=== PATIENT | male | born 1995 | race Hispanic/Latino ===

== ENCOUNTER 2020-03-03 14:15 | Emergency (ER) | payer MEDICARE ==
--- NOTE | 2020-03-03 14:36 | Event Note ---
ED Screening Note Date of service: 03/03/20 Time: 14:36 ED Screening Note: Patient presents from care facility for self injuries today This initial assessment/diagnostic orders/clinical plan/treatment(s) is/are subject to change based on patients health status, clinical progression and re-assessment by fellow clinical providers in the ED. Further treatment and workup at subsequent clinical providers discretion. Patient/guardian urged not to elope from the ED as their condition may be serious if not clinically assessed and managed. Initial orders include: mental health eval
[2020-03-03 15:23] LABS: Basophils % (Auto) 0.3 % (0.0-1.8); Hematocrit 39.8 % (35.5-45.6); Hemoglobin 14.1 gm/dl (11.8-15.2); Lymphocytes # (Auto) 0.9 K/mm3 (1.2-5.4); Lymphocytes % (Auto) 12.9 % (13.4-35.0); Mean Corpuscular HGB Conc 36 % (32-34); Mean Corpuscular Volume 90 fl (84-94); Monocytes # (Auto) 0.9 K/mm3 (0.0-0.8); Monocytes % (Auto) 11.6 % (0.0-7.3); Platelet Count 225 K/mm3 (140-440); Red Blood Count 4.42 M/mm3 (3.65-5.03)
[2020-03-03 15:26] LABS: Alanine Aminotransferase 25 units/L (7-56); Albumin 3.8 g/dL (3.9-5); BUN/Creatinine Ratio 10; Blood Urea Nitrogen 8 mg/dL (9-20); Calcium 9.4 mg/dL (8.4-10.2); Hemolysis Index 12
[2020-03-03] MEDS ORDERED: BACITRACIN ZINC OINT 28.4 GM TP ONE (17:39)
[2020-03-03] MEDS ORDERED: SODIUM CHLORIDE 0.9% 1000 ML 1,000 ML IV ONE (17:39)
--- NOTE | 2020-03-03 18:20 | Emergency Department Report ---
HPI - General Chief Complaint: Psych Time Seen by Provider: 03/03/20 16:58 - HPI HPI: Room 17 The patient is a 24-year-old male present with a chief complaint of scratches to bilateral upper extremities. The patient has a history of bipolar disorder and schizoaffective disorder and reportedly has self-injurious behavior which includes smacking himself in the face and scratching his arms. V Belt Builder states over the past 2 days the patient has been scratching at his triceps. Patient made no statements of wanting to kill himself. Staff state they brought the patient to the ED simply for treatment of the scratches to his arms. ED Past Medical Hx - Past Medical History Previous Medical History?: No Hx Diabetes: Yes Hx Psychiatric Treatment: Yes (Schizoaffective disorder, bipolar disorder) - Surgical History Past Surgical History?: No - Family History Family history: no significant - Social History Smoking Status: Never Smoker Substance Use Type: None ED Review of Systems ROS: Stated complaint: MENTAL HEALTH Other details as noted in HPI Comment: Unobtainable due to pts medical conditions (Developmentally delayed) Constitutional: no symptoms reported Respiratory: no symptoms reported Endocrine: no symptoms reported Physical Exam - Physical Exam Vital Signs: Vital Signs 03/03/20 03/03/20 14:18 14:31 Temperature 99 F 99.0 F Pulse Rate 125 H 129 H Respiratory 18 20 Rate Blood Pressure 161/100 161/100 [Right] O2 Sat by Pulse 95 Oximetry Vital Signs 03/03/20 03/03/20 03/03/20 14:18 14:31 18:16 Temperature 99 F 99.0 F Pulse Rate 125 H 129 H 117 H Respiratory 18 20 22 Rate Blood Pressure 155/96 Blood Pressure 161/100 161/100 [Right] O2 Sat by Pulse 95 98 Oximetry 03/03/20 03/03/20 19:00 19:16 Temperature Pulse Rate 115 H 104 H Respiratory 19 14 Rate Blood Pressure 155/96 155/96 Blood Pressure [Right] O2 Sat by Pulse 99 99 Oximetry Physical Exam: GENERAL: The patient is well-nourished male sitting on stretcher not appearing to be in acute distress HEENT: Normocephalic. Atraumatic. Extraocular motions are intact. Patient has moist mucous membranes. NECK: Supple. Trachea midline CHEST/LUNGS: Clear to auscultation. There is no respiratory distress noted. HEART/CARDIOVASCULAR: Regular. There is tachycardia. There is no gallop rub or murmur. ABDOMEN: Abdomen is soft, nontender. Patient has normal bowel sounds. There is no abdominal distention. SKIN: There are abrasions to bilateral tricep regions. There is no bleeding visualized. There is no edema. There is no diaphoresis. NEURO: The patient is awake and alert. The patient is cooperative. The patient has no focal neurologic deficits. MUSCULOSKELETAL: There is no evidence of acute injury. ED Course Vital Signs 03/03/20 03/03/20 14:18 14:31 Temperature 99 F 99.0 F Pulse Rate 125 H 129 H Respiratory 18 20 Rate Blood Pressure 161/100 161/100 [Right] O2 Sat by Pulse 95 Oximetry ED Medical Decision Making - Lab Data Result diagrams: 03/03/20 14:48 03/03/20 14:48 Laboratory Tests 03/03/20 03/03/20 03/03/20 14:48 14:48 14:48 WBC 7.3 RBC 4.42 Hgb 14.1 Hct 39.8 MCV 90 MCH 32 MCHC 36 H RDW 14.0 Plt Count 225 Lymph % (Auto) 12.9 L [place] % (Auto) 11.6 H Eos % (Auto) 0.0 Baso % (Auto) 0.3 Lymph # (Auto) 0.9 L [place] # (Auto) 0.9 H Eos # (Auto) 0.0 Baso # (Auto) 0.0 Seg Neutrophils % 75.2 H Seg Neutrophils # 5.5 Sodium 137 Potassium 4.0 Chloride 99.8 Carbon Dioxide 23 Anion Gap 18 BUN 8 L Creatinine 0.8 Estimated GFR > 60 BUN/Creatinine Ratio 10 Glucose 110 H Calcium 9.4 Total Bilirubin 0.30 AST 30 ALT 25 Alkaline Phosphatase 85 Total Protein 7.8 Albumin 3.8 L Albumin/Globulin Ratio 1.0 Salicylates < 0.3 L Acetaminophen Plasma/Serum Alcohol 03/03/20 03/03/20 14:48 14:48 WBC RBC Hgb Hct MCV MCH MCHC RDW Plt Count Lymph % (Auto) [place] % (Auto) Eos % (Auto) Baso % (Auto) Lymph # (Auto) [place] # (Auto) Eos # (Auto) Baso # (Auto) Seg Neutrophils % Seg Neutrophils # Sodium Potassium Chloride Carbon Dioxide Anion Gap BUN Creatinine Estimated GFR BUN/Creatinine Ratio Glucose Calcium Total Bilirubin AST ALT Alkaline Phosphatase Total Protein Albumin Albumin/Globulin Ratio Salicylates Acetaminophen 5.0 L Plasma/Serum Alcohol < 0.01 - Differential Diagnosis Abrasions Critical care attestation.: If time is entered above; I have spent that time in minutes in the direct care of this critically ill patient, excluding procedure time. ED Disposition Clinical Impression: Abrasion of right upper extremity, Abrasion of left upper extremity Disposition: DC/TX-70 ANOTHER TYPE HLTHCARE Is pt being admited?: No Does the pt Need Aspirin: No Condition: Stable Time of Disposition: 19:31 (DC with lab animal technician to long-term)
[2020-03-03 18:32] VITALS: BP 155/96
== END 2020-03-03 19:53 | disposition other institution (70) ==
LOC: ED 14:15
DX: S40.811A Abrasion of right upper arm, initial encounter (principal); S40.812A Abrasion of left upper arm, initial encounter; E11.9 Type 2 diabetes mellitus without complications; F25.0 Schizoaffective disorder, bipolar type; Z88.0 Allergy status to penicillin; Z91.013 Allergy to seafood; X83.8XXA Intentional self-harm by other specified means, initial encounter; Y93.89 Activity, other specified; Y92.89 Other specified places as the place of occurrence of the external cause; Y99.8 Other external cause status
CPT/HCPCS: 36415; 80053; 85025; 96360; 99284; J7030; 80320; G0480

== ENCOUNTER 2020-06-05 07:40 | Day surgery (SDC) | payer MEDICARE ==
[2020-06-05] MEDS ORDERED: BACTERIOSTATIC SODIUM CHLORIDE 0.9% 30 ML VIAL INFILTRATI ONE (07:51)
[2020-06-05] MEDS ORDERED: fentaNYL 100 MCG/2 ML INJ ONE (08:03)
[2020-06-05] MEDS ORDERED: LIDOCAINE MPF (2%) 20 MG/1 ML VIAL 5 ML ONE (08:03)
[2020-06-05] MEDS ORDERED: propofoL 200 MG/20 ML VIAL IV ONE (08:04)
[2020-06-05] MEDS ORDERED: dexAMETHasone 20 MG/5 ML VIAL ONE (08:05)
[2020-06-05] MEDS ORDERED: SUCCINYLCHOLINE CHLORIDE 200 MG/10 ML INJ MDV ONE (08:05)
[2020-06-05] MEDS ORDERED: PHENYLEPHRINE/NS 1,000 MCG/10 ML SYRINGE (OR USE) IV ONE (08:05)
[2020-06-05] MEDS ORDERED: ONDANSETRON 4 MG/2 ML INJ ONE (08:05)
[2020-06-05] MEDS ORDERED: GLYCOPYRROLATE 0.4 MG/2 ML INJ ONE (08:05)
[2020-06-05] MEDS ORDERED: GENTAMICIN 80 MG in SODIUM CHLORIDE 0.9% 100 ML IV SCH (08:30)
[2020-06-05] MEDS ORDERED: LACTATED RINGERS 1,000 ML ONE (08:54)
[2020-06-05] MEDS ORDERED: HYDROmorphone 1 MG/1 ML INJ IV PRN ×2 (08:59)
[2020-06-05] MEDS ORDERED: ONDANSETRON 4 MG/2 ML INJ IV PRN (08:59)
[2020-06-05] MEDS ORDERED: MIDAZOLAM 2 MG/2 ML INJ IV NR (09:00)
[2020-06-05] MEDS ORDERED: GENTAMICIN/NS 80 MG/100 ML 100 ML IV SCH (09:00)
[2020-06-05] MEDS ORDERED: LACTATED RINGERS 1,000 ML IV SCH (09:00)
--- NOTE | 2020-06-05 09:00 | Anesthesia Day of Surgery ---
Anesthesia Day of Surgery - Day of Surgery Patient Examined: Yes Patient H&P Reviewed: Yes Patient is NPO: Yes
--- NOTE | 2020-06-05 09:04 | Anesthesia Consultation ---
Anesthesia Consult and Med Hx Date of service: 06/05/20 - Airway Intubation Access Assessment: Probably Good (Unable to assess airway) - Pre-Operative Health Status ASA Pre-Surgery Classification: ASA3 Proposed Anesthetic Plan: General - Pulmonary Hx Smoking: No Hx Sleep Apnea: No (MARCELA PRE SCREEN HIGH RISK) - Central Nervous System Hx Seizures: (? CAREGIVER UNSURE) Hx Psychiatric Problems: Yes - Endocrine Hx Hypothyroidism: Yes - Other Systems Hx Cancer: No - Additional Comments Anesthesia Medical History Comments: Pt with severe autism and lives in a long term. Also has depression, bipolar, ADHD, Schizophrenia, self-injury.
[2020-06-05] MEDS ORDERED: WATER FOR IRRIG STERILE 1,500 ML BOTTLE IR ONE (10:00)
[2020-06-05] MEDS ORDERED: IOHEXOL 300 MG/ML 50ML IV ONE (10:00)
--- NOTE | 2020-06-05 10:29 | Operative Report ---
PREOPERATIVE DIAGNOSIS: Hematuria? cystitis. POSTOPERATIVE DIAGNOSIS: Hematuria? cystitis. PROCEDURE: Cystoscopy, retrograde, small biopsy, fulguration. SURGEON: Dr. Jin Hylton. ANESTHESIA: General. FINDINGS: This is a gentleman who is autistic. We could not evaluate in the office. He was combative. He now presents for cystoscopy. He had possible urinary tract infections, now presents for evaluation. DESCRIPTION OF PROCEDURE: The patient was brought to the operating room and placed on the operating table. Following induction of anesthesia, placed in lithotomy position, prepped and draped in usual sterile fashion. We used the 17 and 20-Turkmen sheaths to not to cause any trauma. The urethra showed no strictures. Bladder neck was open. On the right lateral wall, there was also an inflammatory area, which looked like it had recently bled. Pictures were taken. This was biopsied and cauterized. Retrograde showed delicate system. This might have been all related to cystitis. The exact etiology is unknown. The patient tolerated the procedure well. He was given gentamicin. He will be given an antibiotic. Postop brought to recovery room in stable condition. JOB# [id number] ALICIA/DEMIAN
--- NOTE | 2020-06-05 10:31 | Post Operative Note ---
Date of procedure: 06/05/20 Pre-op diagnosis: hematuria Post-op diagnosis: same Findings: small lesion Procedure: cysto biopsy fulg rpgs Anesthesia: GETA Surgeon: HENNA BOX Estimated blood loss: none Pathology: list (bladder) Specimen disposition: to lab Condition: stable Disposition: PACU
--- NOTE | 2020-06-05 10:32 | Discharge Summary ---
Short Stay Discharge Plan Activity: other (no straining ) Diet: regular Special Instructions: other (inc fluids ) Additional Instructions: INCREASE ORAL FLUIDS NO STRAINING CALL FOR FOLLOW-UP APPT Follow up with: CUCA ZIEGLER [Other] - 7 Days HENNA BOX MD [Staff Physician] - 7 Days Forms: Outpatient Surgery DC Inst.
--- NOTE | 2020-06-05 11:42 | Post Anesthesia Evaluation ---
- Post Anesthesia Evaluation Patient Participated: Yes Airway Patent: Yes Stable Respiratory Function: Yes Nausea/Vomiting: No Temp > 96.8F: Yes Pain Manageable: Yes Adequeate Hydration: Yes Anesthesia Complications: No Block Receding Appropriately: Not Applicable Patient on Ventilator: No
[2020-06-05 12:10] VITALS: BP 116/80
--- NOTE | 2020-06-05 14:00 | Fluoroscopy Report ---
FLUOROSCOPY RETROGRADE UROGRAPHY HISTORY: Gross hematuria FINDINGS: Fluoroscopy was provided by radiology during retrograde urography by the urologist. There i s normal filling of both renal collecting systems. No filling defect or abnormal dilatation is identi fied. IMPRESSION: Unremarkable bilateral retrograde pyelograms Fluoroscopy time: 21 seconds Fluoroscopic images: 6 Signer Name: Lencho Jesus Jr, MD Signed: 06/05/2020 1:56 PM Workstation Name: [id number]
== END 2020-06-05 07:41 | disposition home or self-care (01) ==
LOC: OR 07:40
PROVIDERS: ATTEND Urology
DX: N30.81 Other cystitis with hematuria (principal); I10 Essential (primary) hypertension; E03.9 Hypothyroidism, unspecified; F31.9 Bipolar disorder, unspecified; Z86.19 Personal history of other infectious and parasitic diseases; Z88.0 Allergy status to penicillin; Z91.013 Allergy to seafood; Z79.899 Other long term (current) drug therapy; Z98.890 Other specified postprocedural states
CPT/HCPCS: 52204; 74420; 82962; 88305; J0330; J1100; J1580; J2250; J2370; J2405; J2704; J3010; J7120; Q9967; U0003; 88112; C1758

== ENCOUNTER 2021-01-10 18:50 | Emergency (ER) | payer MEDICARE ==
[2021-01-10] MEDS ORDERED: LORazepam 1 MG TAB PO ONE (20:47)
[2021-01-10 21:33] LABS: Basophils # (Auto) 0.1 K/mm3 (0.0-0.1); Basophils % (Auto) 0.7 % (0.0-1.8); Hematocrit 42.6 % (35.5-45.6); Hemoglobin 14.4 gm/dl (11.8-15.2); Lymphocytes # (Auto) 2.6 K/mm3 (1.2-5.4); Lymphocytes % (Auto) 26.7 % (13.4-35.0); Mean Corpuscular HGB Conc 34 % (32-34); Mean Corpuscular Volume 90 fl (84-94); Monocytes # (Auto) 0.8 K/mm3 (0.0-0.8); Monocytes % (Auto) 8.1 % (0.0-7.3); Platelet Count 240 K/mm3 (140-440); Red Blood Count 4.74 M/mm3 (3.65-5.03); Red Cell Distribution Width 17.3 % (13.2-15.2)
[2021-01-10 21:45] LABS: Alanine Aminotransferase 12 units/L (7-56); Albumin 4.1 g/dL (3.9-5); BUN/Creatinine Ratio 13; Blood Urea Nitrogen 10 mg/dL (9-20); Calcium 9.6 mg/dL (8.4-10.2); Hemolysis Index 3
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
[2021-01-11 04:53] VITALS: BP 132/88
== END 2021-01-11 05:14 | disposition home or self-care (01) ==
LOC: ED 18:50
DX: R45.1 Restlessness and agitation (principal); I10 Essential (primary) hypertension; E11.8 Type 2 diabetes mellitus with unspecified complications; F31.9 Bipolar disorder, unspecified; F20.9 Schizophrenia, unspecified; Z88.0 Allergy status to penicillin; Z91.013 Allergy to seafood
CPT/HCPCS: 36415; 80053; 80320; 85025; 99283; 99284; G0480

== ENCOUNTER 2021-06-23 23:45 | Emergency (ER) | payer MEDICARE ==
--- NOTE | 2021-06-24 00:09 | Emergency Department Report ---
ED Psych HPI - General Stated Complaint: MH EVAL Time Seen by Provider: 06/23/21 23:50 Source: EMS - History of Present Illness Initial Comments: Patient is 26 years old male with history of autism. Patient brought to the emergency room via EMS from a jail. long-term staff stated that patient became very aggressive this evening starting banging his head on a wall and he made like several holes in the wall. He also tried to rip off his penis according to the EMS report. Patient is alert and agitated. Patient with several bruises to the both right and left shoulder. Multiple abrasion to the head. Patient brought into a two-point restraint and 1013. Patient is asking for food. MD Complaint: altered mental status - Related Data Home Medications Medication Instructions Recorded Confirmed Last Taken Chlorpromazine HCl [chlorproMAZINE] 100 mg PO TID 05/23/20 06/05/20 06/05/20 07:[address] [DepaKOTE DR] 500 mg PO BID 05/23/20 06/05/20 06/05/20 07:00 Guanfacine HCl [Guanfacine HCl ER] 1 mg PO QHS 05/23/20 06/05/20 06/04/20 20:00 HYDROcodone/ACETAMINOPHEN [Lortab 1 dose PO PRN PRN 05/23/20 05/23/20 Unknown 10 mg-300 mg per 15 ML ORAL LIQ] Ketoconazole 2% [Nizoral] 1 applicatio TP QDAY 05/23/20 06/05/20 06/04/20 08:00 LORazepam [Lorazepam Intensol] 0.5 ml PO TID 05/23/20 06/05/20 06/05/20 07:00 Levothyroxine [Synthroid] 50 mcg PO QAM 05/23/20 06/05/20 06/05/20 07:00 Loratadine [Claritin] 10 mg PO DAILY 05/23/20 06/05/20 06/05/20 07:00 OLANzapine [ZyPREXA] 5 mg PO QDAY 05/23/20 06/05/20 06/05/20 07:00 Sertraline HCl [Zoloft] 20 mg PO DAILY 05/23/20 06/05/20 06/05/20 07:00 cloNIDine [Catapres] 0.1 mg PO BID 05/23/20 06/05/20 06/05/20 07:00 clonazePAM [ Klonopin] 0.5 mg PO TID 05/23/20 06/05/20 06/05/20 07:00 traZODone [Desyrel] 50 mg PO TID 05/23/20 06/05/20 06/05/20 07:00 Allergies Allergy/AdvReac Type Severity Reaction Status Date / Time Penicillins Allergy Unknown Verified 06/24/21 09:01 shellfish derived Allergy Unknown Verified 06/24/21 09:01 ED Review of Systems ROS: Stated complaint: MH EVAL Other details as noted in HPI Comment: All other systems reviewed and negative Constitutional: denies: chills, fever Respiratory: denies: cough, shortness of breath, SOB with exertion Cardiovascular: denies: chest pain, palpitations Neurological: denies: headache Psychiatric: anxiety ED Past Medical Hx - Past Medical History Hx Hypertension: Yes Hx Diabetes: Yes (NO LONGER ON MEDS) Hx Seizures: (? CAREGIVER UNSURE) Hx Psychiatric Treatment: Yes (Schizoaffective disorder, bipolar disorder) Hx HIV: No - Social History Smoking Status: Unknown if ever smoked - Medications Home Medications: Home Medications Medication Instructions Recorded Confirmed Last Taken Type Chlorpromazine HCl [chlorproMAZINE] 100 mg PO TID 05/23/20 06/05/20 06/05/20 07:00 History Divalproex [Mathew QUINONEZ] 500 mg PO BID 05/23/20 06/05/20 06/05/20 07:00 History Guanfacine HCl [Guanfacine HCl ER] 1 mg PO QHS 05/23/20 06/05/20 06/04/20 20:00 History HYDROcodone/ACETAMINOPHEN [Lortab 1 dose PO PRN PRN 05/23/20 05/23/20 Unknown History 10 mg-300 mg per 15 ML ORAL LIQ] Ketoconazole 2% [Nizoral] 1 applicatio TP QDAY 05/23/20 06/05/20 06/04/20 08:00 History LORazepam [Lorazepam Intensol] 0.5 ml PO TID 05/23/20 06/05/20 06/05/20 07:00 History Levothyroxine [Synthroid] 50 mcg PO QAM 05/23/20 06/05/20 06/05/20 07:00 History Loratadine [Claritin] 10 mg PO DAILY 05/23/20 06/05/20 06/05/20 07:00 History OLANzapine [ZyPREXA] 5 mg PO QDAY 05/23/20 06/05/20 06/05/20 07:00 History Sertraline HCl [Zoloft] 20 mg PO DAILY 05/23/20 06/05/20 06/05/20 07:00 History cloNIDine [Catapres] 0.1 mg PO BID 05/23/20 06/05/20 06/05/20 07:00 History clonazePAM [ Klonopin] 0.5 mg PO TID 05/23/20 06/05/20 06/05/20 07:00 History traZODone [Desyrel] 50 mg PO TID 05/23/20 06/05/20 06/05/20 07:00 History ED Physical Exam - General General appearance: alert, anxious, other (agitated) - Head Head exam: Present: other (Multiple abrasion to the forehead.) - Eye Eye exam: Present: normal appearance - ENT ENT exam: Present: normal exam, normal orophraynx, mucous membranes moist - Neck Neck exam: Present: normal inspection, full ROM. Absent: tenderness, meningismus - Respiratory Respiratory exam: Present: normal lung sounds bilaterally - Cardiovascular Cardiovascular Exam: Present: regular rate, normal rhythm, normal heart sounds - GI/Abdominal GI/Abdominal exam: Present: soft, normal bowel sounds. Absent: distended, tenderness, guarding, rebound, rigid - Extremities Exam Extremities exam: Present: other (Abrasion to the right and left shoulder.) - Back Exam Back exam: Present: normal inspection, full ROM. Absent: CVA tenderness (R), CVA tenderness (L) - Neurological Exam Neurological exam: Present: alert, altered - Psychiatric Psychiatric exam: Present: agitated, anxious - Skin Skin exam: Present: abrasion, ecchymosis ED Course Vital Signs 06/24/21 06/24/21 06/24/21 00:17 08:21 09:00 Temperature 98 F Pulse Rate 103 H 105 H 76 Respiratory 18 14 Rate Blood Pressure 140/90 Blood Pressure 123/95 126/88 [Right] O2 Sat by Pulse 100 99 95 Oximetry 06/24/21 06/24/21 06/24/21 09:30 10:00 10:30 Temperature Pulse Rate 72 76 74 Respiratory 10 L Rate Blood Pressure 118/86 Blood Pressure 127/81 119/94 122/83 [Right] O2 Sat by Pulse 99 99 100 Oximetry 06/24/21 06/24/21 06/24/21 11:00 11:30 12:00 Temperature Pulse Rate 75 78 74 Respiratory 11 L 15 11 L Rate Blood Pressure 122/83 114/83 120/82 Blood Pressure 125/95 [Right] O2 Sat by Pulse 98 98 99 Oximetry 06/24/21 06/24/21 06/24/21 12:30 13:00 13:30 Temperature Pulse Rate 78 84 79 Respiratory 11 L 13 16 Rate Blood Pressure 133/89 129/88 132/88 Blood Pressure [Right] O2 Sat by Pulse 100 93 99 Oximetry 06/24/21 06/24/21 06/24/21 14:00 14:30 15:00 Temperature Pulse Rate 83 79 85 Respiratory 12 13 12 Rate Blood Pressure 111/72 121/80 113/76 Blood Pressure [Right] O2 Sat by Pulse 99 100 99 Oximetry 06/24/21 06/24/21 06/24/21 15:30 16:00 16:30 Temperature Pulse Rate 86 101 H 99 H Respiratory 14 11 L Rate Blood Pressure 111/71 113/69 113/69 Blood Pressure [Right] O2 Sat by Pulse 99 97 Oximetry 06/24/21 06/24/21 06/24/21 17:00 17:30 18:00 Temperature Pulse Rate 85 67 72 Respiratory 12 10 L 10 L Rate Blood Pressure 113/69 113/69 113/69 Blood Pressure [Right] O2 Sat by Pulse 99 Oximetry 06/24/21 06/24/21 06/24/21 18:30 18:36 19:00 Temperature Pulse Rate 59 L 64 89 Respiratory 10 L 10 L 13 Rate Blood Pressure 113/69 113/69 113/69 Blood Pressure [Right] O2 Sat by Pulse 100 100 100 Oximetry 06/24/21 06/25/21 06/25/21 23:00 03:00 06:59 Temperature 98 F Pulse Rate 60 60 Respiratory 16 16 Rate Blood Pressure 117/80 Blood Pressure 120/68 110/70 [Right] O2 Sat by Pulse 100 98 Oximetry 06/25/21 06/25/21 06/25/21 07:00 08:51 08:52 Temperature Pulse Rate 60 89 Respiratory 16 Rate Blood Pressure 117/80 Blood Pressure 117/80 [Right] O2 Sat by Pulse 98 99 100 Oximetry 06/25/21 06/25/21 06/25/21 09:00 09:01 09:31 Temperature Pulse Rate Respiratory Rate Blood Pressure 117/80 117/80 Blood Pressure [Right] O2 Sat by Pulse 100 99 98 Oximetry 06/25/21 06/25/21 06/25/21 10:01 10:31 11:34 Temperature Pulse Rate Respiratory Rate Blood Pressure 117/80 117/80 115/87 Blood Pressure [Right] O2 Sat by Pulse 99 100 Oximetry 06/25/21 06/25/21 06/25/21 12:11 13:15 13:57 Temperature Pulse Rate Respiratory Rate Blood Pressure 88/61 88/61 88/61 Blood Pressure [Right] O2 Sat by Pulse 87 Oximetry 06/25/21 06/25/21 06/25/21 14:01 14:31 15:00 Temperature Pulse Rate Respiratory Rate Blood Pressure 88/61 88/61 88/61 Blood Pressure [Right] O2 Sat by Pulse 100 96 99 Oximetry 06/25/21 06/25/21 06/25/21 16:17 16:19 19:53 Temperature Pulse Rate 76 113 H Respiratory 14 13 Rate Blood Pressure 88/61 112/62 Blood Pressure 121/80 [Right] O2 Sat by Pulse 99 100 Oximetry 06/25/21 06/25/21 06/25/21 20:01 20:31 21:01 Temperature Pulse Rate 108 H 101 H 98 H Respiratory 14 14 18 Rate Blood Pressure 105/56 99/51 99/61 Blood Pressure [Right] O2 Sat by Pulse 96 98 Oximetry 06/25/21 06/26/21 06/26/21 21:41 08:00 09:00 Temperature Pulse Rate 103 H Respiratory 16 16 Rate Blood Pressure 126/73 Blood Pressure 117/69 [Right] O2 Sat by Pulse 98 98 Oximetry 06/26/21 06/26/21 06/26/21 12:03 15:59 19:40 Temperature 98.4 F 97.6 F Pulse Rate 95 H 97 H 86 Respiratory 16 14 18 Rate Blood Pressure Blood Pressure 103/69 101/71 105/71 [Right] O2 Sat by Pulse 100 100 96 Oximetry 06/27/21 06/27/21 06/27/21 06:20 07:45 19:13 Temperature 98.7 F 97.5 F L Pulse Rate 86 86 99 H Respiratory 18 17 17 Rate Blood Pressure Blood Pressure 103/55 131/99 122/73 [Right] O2 Sat by Pulse 96 99 98 Oximetry 06/28/21 06/28/21 06/28/21 00:36 00:43 00:55 Temperature 98 F Pulse Rate 88 52 L 108 H Respiratory 20 16 20 Rate Blood Pressure Blood Pressure 133/89 135/90 127/88 [Right] O2 Sat by Pulse 97 97 98 Oximetry 06/28/21 06/28/21 06/28/21 01:31 01:46 04:32 Temperature Pulse Rate 91 H 89 88 Respiratory 19 17 18 Rate Blood Pressure Blood Pressure 130/88 130/91 128/83 [Right] O2 Sat by Pulse 100 100 99 Oximetry 06/28/21 06/28/21 04:52 05:52 Temperature Pulse Rate 89 79 Respiratory 19 19 Rate Blood Pressure Blood Pressure 127/88 129/74 [Right] O2 Sat by Pulse 99 99 Oximetry ED Medical Decision Making - Lab Data Result diagrams: 06/25/21 01:48 06/24/21 00:30 - Medical Decision Making Patient is 26 years old male with history of autism. Patient brought to the emergency room via EMS from a jail. long-term staff stated that patient became very aggressive this evening starting banging his head on a wall and he made like several holes in the wall. He also tried to rip off his penis according to the EMS report. Patient is alert and agitated. Patient with several bruises to the both right and left shoulder. Multiple abrasion to the head. Patient brought into a two-point restraint and 1013. Patient is asking for food. Patient became agitated. Patient received Geodon 20 mg IM and it did help a lot with agitation patient went to sleep. Labs reviewed and is unremarkable except for slight leukocytosis. UA and UDS is still pending. Patient is medically cleared to be evaluated by our psychiatric team. Critical care attestation.: If time is entered above; I have spent that time in minutes in the direct care of this critically ill patient, excluding procedure time. ED Disposition Clinical Impression: Aggressive behavior, Self-inflicted injury Disposition: [address] [place] [address] Is pt being admited?: No Condition: Stable Referrals: PRIMARY CARE, [Primary Care Provider] - 3-5 Days
[2021-06-24] MEDS ORDERED: ZIPRASIDONE MESYLATE 20 MG VIAL IM ONE (00:23)
[2021-06-24 00:57] LABS: Basophils % (Auto) 0.4 % (0.0-1.8); Eosinophils % (Auto) 0.2 % (0.0-4.3); Hematocrit 36.1 % (35.5-45.6); Hemoglobin 12.1 gm/dl (11.8-15.2); Lymphocytes # (Auto) 1.6 K/mm3 (1.2-5.4); Lymphocytes % (Auto) 13.5 % (13.4-35.0); Mean Corpuscular HGB Conc 34 % (32-34); Mean Corpuscular Volume 91 fl (84-94); Monocytes # (Auto) 0.9 K/mm3 (0.0-0.8); Monocytes % (Auto) 8.1 % (0.0-7.3); Platelet Count 257 K/mm3 (140-440); Red Blood Count 3.96 M/mm3 (3.65-5.03); Red Cell Distribution Width 14.1 % (13.2-15.2)
[2021-06-24 01:02] LABS: Blood Urea Nitrogen 16 mg/dL (9-20); Calcium 8.7 mg/dL (8.4-10.2); Hemolysis Index 11
[2021-06-24 01:09] LABS: BUN/Creatinine Ratio 27
[2021-06-24] MEDS ORDERED: KETAMINE 500 MG/5 ML VIAL MDV IM ONE ×2 (07:56→16:06)
--- NOTE | 2021-06-24 07:58 | Emergency Department Report ---
Marta Doc - Documentation Documentation: [id number] was asked to intervene as the patient was agitated, hitting himself, sc ratching at his skin, pulling at his penis. He has a strap around his abdomen with both arms restrained but still has movement at the elbows and shoulders. He is physically abusing himself and scratching at his skin. He is pulling at his genitalia. Patient had been given Geodon previously with no symptomatic change per nursing report. Ketamine IM was ordered in order to provide adequate sedation and provide appropriate care for this patient. It was believed that he would attack others going in the room as this had previously occurred. Kane hernandez was called. Patient was placed in a medical room. He was placed on the monitor. Pulse ox was normal. CT was ordered as the patient was banging his head against the wall multiple times and hitting himself. Wounds will be cleaned and dressed. Adacel was ordered. On exam, patient has obvious developmental delay and autism. He has multiple abrasions and contusions to the forehead. There are multiple skin abrasions to the chest and abdomen where he has been scratching himself. He has multiple abrasions to each shoulder where he is using his chin and ravi to rub his skin raw. There are abrasions to the genitalia from him pulling at them. 1015-Patient is more sedate after ketamine. He was maintained in a room on a monitor. Psychiatric services did see the patient. He was unable to participate due to the chemical sedation required secondary to his agitation and self abuse. CT has been resulted and noted. There is no evidence of intracranial injury. Urine is still pending. Regardless, psychiatric admission is recommended. They have recommended medications which will be continued.
[2021-06-24] MEDS ORDERED: SODIUM CHLORIDE 0.9% 1000 ML 1,000 ML IV ONE (08:28)
[2021-06-24] MEDS ORDERED: TETANUS,DIPH,PERTUSS(ACELL) VACCINE 0.5 ML SYRINGE IM ONE (08:28)
--- NOTE | 2021-06-24 08:56 | Consultation ---
History of Present Illness - Reason for Consult Consult date: 06/24/21 Reason for consult: SI - History of Present Psychiatric Illness HPI: Patient is 26 years old male with history of autism. Patient brought to the emergency room via EMS from a jail. intermediate staff stated that patient became very aggressive this evening starting banging his head on a wall and he made like several holes in the wall. He also tried to rip off his penis according to the EMS report. Patient is alert and agitated. Patient with several bruises to the both right and left shoulder. Multiple abrasion to the head. Patient brought into a two-point restraint and 1013. Patient is asking for food. The patient was seen today. He is awake, but only staring. He could not participate in the evaluation, as the staff nurse states he was given Ketamine. The patient was said to have been banging his head against the wall. He has an abrasion noted to his left shoulder. The patient also has abrasion to his forehead. He has dried blood on his neck and face. PAST PSYCHIATRIC HISTORY: Unable to assess PAST MEDICAL HISTORY: Unable to assess Family Psychiatric History: None documented SOCIAL HISTORY Unable to assess REVIEW OF SYSTEMS Unable to assess MENTAL STATUS EXAMINATION Unable to assess Assessment and Plan (1) Acute Agitation (R45.1) Treatment Plan 1013 Continue Klonopin 0.5mg po TID Remeron 15mg po qhs Harley QUINONEZ 125mg po BID Geodon 20mg IM q4h prn agitation Medical: Per primary Sitter: Defer to primary Disposition: Recommend acute psychiatric inpatient treatment Will follow. Thanks Case staffed with Dr. Zafar Medications and Allergies Allergies Allergy/AdvReac Type Severity Reaction Status Date / Time Penicillins Allergy Unknown Verified 06/24/21 09:01 shellfish derived Allergy Unknown Verified 06/24/21 09:01 Home Medications Medication Instructions Recorded Confirmed Last Taken Type Chlorpromazine HCl [chlorproMAZINE] 100 mg PO TID 05/23/20 06/05/20 06/05/20 07:00 History Divalproex [Harley QUINONEZ] 500 mg PO BID 05/23/20 06/05/20 06/05/20 07:00 History Guanfacine HCl [Guanfacine HCl ER] 1 mg PO QHS 05/23/20 06/05/20 06/04/20 20:00 History HYDROcodone/ACETAMINOPHEN [Lortab 1 dose PO PRN PRN 05/23/20 05/23/20 Unknown History 10 mg-300 mg per 15 ML ORAL LIQ] Ketoconazole 2% [Nizoral] 1 applicatio TP QDAY 05/23/20 06/05/20 06/04/20 08:00 History LORazepam [Lorazepam Intensol] 0.5 ml PO TID 05/23/20 06/05/20 06/05/20 07:00 History Levothyroxine [Synthroid] 50 mcg PO QAM 05/23/20 06/05/20 06/05/20 07:00 History Loratadine [Claritin] 10 mg PO DAILY 05/23/20 06/05/20 06/05/20 07:00 History OLANzapine [ZyPREXA] 5 mg PO QDAY 05/23/20 06/05/20 06/05/20 07:00 History Sertraline HCl [Zoloft] 20 mg PO DAILY 05/23/20 06/05/20 06/05/20 07:00 History cloNIDine [Catapres] 0.1 mg PO BID 05/23/20 06/05/20 06/05/20 07:00 History clonazePAM [ Klonopin] 0.5 mg PO TID 05/23/20 06/05/20 06/05/20 07:00 History traZODone [Desyrel] 50 mg PO TID 05/23/20 06/05/20 06/05/20 07:00 History Active Meds: Active Medications Sodium Chloride (Nacl 0.9% 1000 Ml) 1,000 mls @ 999 mls/hr IV BOLUS ONE Stop: 06/24/21 09:28 Last Admin: 06/24/21 08:46 Dose: 999 mls/hr Mental Status Exam - Vital signs Last Vital Signs Temp 98 F 06/24/21 00:17 Pulse 105 H 06/24/21 08:21 Resp 14 06/24/21 08:21 BP 123/95 06/24/21 08:21 Pulse Ox 99 06/24/21 08:21 Results Result Diagrams: 06/24/21 00:30 06/24/21 00:30 Abnormal lab results 06/24/21 06/24/21 06/24/21 Range/Units 00:30 00:30 00:30 WBC 11.5 H (4.5-11.0) K/mm3 [place] % (Auto) 8.1 H (0.0-7.3) % [place] # (Auto) 0.9 H (0.0-0.8) K/mm3 Seg Neutrophils % 77.8 H (40.0-70.0) % Seg Neutrophils # 8.9 H (1.8-7.7) K/mm3 Sodium 135 L (137-145) mmol/L Creatinine 0.6 L (0.8-1.3) mg/dL Glucose 108 H (75-100) mg/dL Salicylates < 0.3 L (2.8-20.0) mg/dL Acetaminophen (10.0-30.0) ug/mL 06/24/21 Range/Units 00:30 WBC (4.5-11.0) K/mm3 [place] % (Auto) (0.0-7.3) % [place] # (Auto) (0.0-0.8) K/mm3 Seg Neutrophils % (40.0-70.0) % Seg Neutrophils # (1.8-7.7) K/mm3 Sodium (137-145) mmol/L Creatinine (0.8-1.3) mg/dL Glucose (75-100) mg/dL Salicylates (2.8-20.0) mg/dL Acetaminophen 5.0 L (10.0-30.0) ug/mL All other labs normal.
--- NOTE | 2021-06-24 09:22 | Cat Scan Report ---
NONENHANCED CT SCAN OF THE HEAD: INDICATION / CLINICAL INFORMATION: 26 years Male; self inflicted trauma autism abrasion . TECHNIQUE: Routine CT head without contrast. All CT scans at this location are performed using CT dos e reduction for ALARA by means of automated exposure control. COMPARISON: None. FINDINGS: BRAIN / INTRACRANIAL CONTENTS: No intracranial sequela from the trauma; mild scalp swelling in the le ft no fluid accumulation in the paranasal sinuses No acute hemorrhage, mass effect, midline shift, hydrocephalus, or acute, large territorial infarct. No chronic infarct or focal atrophy. Normal brain volume and ventricular/sulcal size for age. No sig nificant white matter abnormality. CRANIOCERVICAL JUNCTION: No significant abnormality. ORBITS: No significant abnormality of visualized orbits. SINUSES / MASTOIDS: No significant abnormality of the visualized paranasal sinuses or mastoid air yoselyn ls. ADDITIONAL FINDINGS: None. IMPRESSION: No intracranial sequela from the trauma; no acute focal parenchymal lesion Signer Name: Juan Carlos Anderson MD Signed: 06/24/2021 9:17 AM Workstation Name: [id number]
[2021-06-24 10:38] LABS: Amphetamine Screen,Urine Negative; Benzodiazepines Screen,Urine Negative; Cannabinoid Screen,Urine Negative; Cocaine Screen,Urine Negative; Methadone Screen,Urine Negative; Opiate Screen,Urine Negative
[2021-06-24 10:39] LABS: Bilirubin,Urine NEG (Negative); Blood,Urine NEG (Negative); Color,Urine Yellow (Yellow); Hyaline Casts,Urine 2 /LPF; Mucus,Urine 2+ /HPF
[2021-06-24] MEDS: DIVALPROEX DR 125 MG TAB PO SCH ×2 (10:45→22:50)
[2021-06-24] MEDS: clonazePAM 0.5 MG TAB PO SCH ×2 (14:16→22:50)
[2021-06-24] MEDS ORDERED: KETAMINE 500 MG/5 ML VIAL MDV ONE (15:54)
[2021-06-24] MEDS: MIRTAZAPINE 15 MG TAB PO SCH (22:50)
[2021-06-25 01:58] LABS: Hematocrit 36.3 % (35.5-45.6); Hemoglobin 12.4 gm/dl (11.8-15.2); Mean Corpuscular HGB Conc 34 % (32-34); Mean Corpuscular Volume 91 fl (84-94); Platelet Count 250 K/mm3 (140-440); Red Blood Count 3.99 M/mm3 (3.65-5.03)
[2021-06-25 04:09] LABS: Anisocytosis 1+; Basophils % (Manual) 0 % (0.0-1.8); Platelet Estimate Consistent w Auto; Total Cells Counted 100
[2021-06-25] MEDS: clonazePAM 0.5 MG TAB PO SCH ×2 (07:39→16:00)
[2021-06-25] MEDS: ZIPRASIDONE MESYLATE 20 MG VIAL IM PRN (07:50)
[2021-06-25] MEDS ORDERED: MIDAZOLAM 5 MG/5 ML INJ MDV IV NR ×2 (08:00→13:00)
[2021-06-25] MEDS ORDERED: MIDAZOLAM 5 MG/5 ML INJ MDV IV ONE (08:25)
--- NOTE | 2021-06-25 08:33 | Emergency Department Report ---
Blank Doc - Documentation Documentation: Patient did require sedation last evening. He was escalating this morning. We tried to calm him down. We did provide ice cream which he was asking for. We tried to get him to remain in his room. Patient continued to escalate. He did get Geodon 20 mg IM without any symptomatic change. Based on that, he continued to escalate and began slapping himself and rubbing his chin on his shoulders again. He started to bleed. We physically restrain him. Patient was given Versed 2.5 mg IM with ability to repeat the dose as needed. We did put him in four-point restraints until we could chemically sedate him to prevent him from harming himself. Psychiatric services is still working on disposition. They may need medication dosing adjustment as Geodon 20 mg IM if fails to control his outburst.
[2021-06-25] MEDS: DIVALPROEX DR 125 MG TAB PO SCH (10:56)
--- NOTE | 2021-06-25 11:03 | Progress Note ---
Subjective - Reason for Consult Consult date: 06/25/21 Reason for consult: agitation, self injury - Chief Complaint Chief complaint: The patient was seen today. He is in 4 point restraints. A nurse is at bedside and says the patient started hitting himself again. She says he was medicated. He is awake, but unable to be engaged in the evaluation. ROS Unable to assess MENTAL STATUS EXAMINATION Unable to assess Assessment and Plan (1) Acute Agitation (R45.1) Treatment Plan 1013 Continue Klonopin 0.5mg po TID Remeron 15mg po qhs Increase Depakote DR 250mg po BID Geodon 20mg IM q4h prn agitation Start Haldol 1mg po BID Medical: Per primary Sitter: Defer to primary Disposition: Recommend acute psychiatric inpatient treatment Will follow. Thanks Case staffed with Dr. Zafar Mental Status Exam - Vital signs Last Vital Signs Temp 98 F 06/24/21 23:00 Pulse 89 06/25/21 08:52 Resp 16 06/25/21 07:00 BP 117/80 06/25/21 07:00 Pulse Ox 100 06/25/21 09:00
[2021-06-25] MEDS: HALOPERIDOL 1 MG TAB PO SCH (12:54)
[2021-06-25] MEDS ORDERED: HALOPERIDOL LACTATE 5 MG/1 ML INJ IM ONE (13:27)
[2021-06-25] MEDS ORDERED: KETAMINE 500 MG/5 ML VIAL MDV ONE ×2 (13:47→19:41)
[2021-06-25] MEDS ORDERED: KETAMINE 200 MG/20 ML INJ MDV IM ONE (14:16)
--- NOTE | 2021-06-25 15:10 | Event Note ---
Date: 06/25/21 Restraints were ordered by my colleague, but orders were not entered into [employer]. Nursing team has requested that I enter these orders into [employer]. I have reviewed the patient's chart and documentation. Patient breathing spontaneously, saturating well, on room air, and in no acute distress.
[2021-06-25] MEDS: DIVALPROEX DR 250 MG TAB PO SCH (16:00)
[2021-06-25] MEDS ORDERED: HALOPERIDOL LACTATE 5 MG/1 ML INJ ONE (18:01)
[2021-06-25] MEDS ORDERED: LORazepam 2 MG/ML VIAL IM PRN (18:19)
[2021-06-25] MEDS ORDERED: KETAMINE 200 MG/20 ML INJ MDV IM STA (19:29)
[2021-06-25] MEDS ORDERED: DIVALPROEX DR 250 MG TAB PO SCH (22:00)
[2021-06-25] MEDS: MIDAZOLAM 2 MG/2 ML INJ IM PRN (23:13)
[2021-06-25] MEDS ORDERED: ZIPRASIDONE MESYLATE 20 MG VIAL IM ONE (23:35)
[2021-06-26] MEDS ORDERED: LORazepam 2 MG/ML VIAL IM ONE (01:15)
[2021-06-26] MEDS ORDERED: LORazepam 2 MG/ML VIAL ONE (01:17)
[2021-06-26] MEDS: MIDAZOLAM 2 MG/2 ML INJ IM PRN ×2 (04:17→09:23)
[2021-06-26] MEDS: DIVALPROEX DR 250 MG TAB PO SCH ×3 (08:45→22:12)
[2021-06-26] MEDS: clonazePAM 0.5 MG TAB PO SCH ×3 (08:45→22:12)
--- NOTE | 2021-06-26 10:11 | Progress Note ---
Subjective - Reason for Consult Consult date: 06/26/21 Reason for consult: agitation - Chief Complaint Chief complaint: The patient was seen today. He is in 4 point restraints. He is sedated. The nurse says the patient was just given versed. ROS Unable to assess MENTAL STATUS EXAMINATION Unable to assess Assessment and Plan (1) Acute Agitation (R45.1) Treatment Plan 1013 Continue Klonopin 0.5mg po TID Continue Remeron 15mg po qhs Continue Depakote DR 250mg po TID Geodon 20mg IM q4h prn agitation Increase Haldol 5mg po BID Agree with Versed Medical: Per primary Sitter: Defer to primary Disposition: Recommend acute psychiatric inpatient treatment Will follow. Thanks Case staffed with Dr. Zafar. The patient's progress and med management discussed with him. Informed him that the staff nurse states that administration wanted him to see the patient. Dr. Zafar agrees with the above plan, and does not want to make any changes. Mental Status Exam - Vital signs Last Vital Signs Temp 98 F 06/24/21 23:00 Pulse 98 H 06/25/21 21:01 Resp 18 06/25/21 21:01 BP 126/73 06/25/21 21:41 Pulse Ox 98 06/25/21 20:31
[2021-06-26] MEDS: HALOPERIDOL 5 MG TAB PO SCH ×2 (10:30→22:12)
--- NOTE | 2021-06-26 10:34 | Event Note ---
Date: 06/26/21 Nursing request order for restraints. I had a [id number] interaction with the patient. Patient has history of autism and is here as a psychiatric hold on 1013. Patient received a dose of Versed for agitation, concern for self injury and injury to others. At this time patient is in restraints and sedated. Cardiac monitoring is ordered.
[2021-06-26] MEDS: HALOPERIDOL 1 MG TAB PO SCH (12:50)
--- NOTE | 2021-06-26 15:35 | Emergency Department Report ---
Blank Doc - Documentation Documentation: This is a [id number] encounter. Patient is still agitated and harming himse lf. He is still hitting himself and scratching himself. Behavioral restraints were ordered. He has abrasions multiple places and bloody abrasions in addition.
[2021-06-26] MEDS: MIRTAZAPINE 15 MG TAB PO SCH (22:13)
[2021-06-27] MEDS ORDERED: NITROGLYCERIN DRIP 0 MG/0 ML BOTTLE ONE (02:05)
[2021-06-27] MEDS ORDERED: NORepinephrine/NS 8 MG-250 ML 0 MG/0 ML INFUS..BTL IV ONE (02:27)
[2021-06-27] MEDS ORDERED: LOPERAMIDE 2 MG CAP PO ONE (08:35)
[2021-06-27] MEDS: DIVALPROEX DR 250 MG TAB PO SCH (09:17)
[2021-06-27] MEDS: clonazePAM 0.5 MG TAB PO SCH ×4 (09:17→21:08)
[2021-06-27] MEDS: MIDAZOLAM 2 MG/2 ML INJ IM PRN ×2 (09:18→12:03)
--- NOTE | 2021-06-27 09:33 | Event Note ---
Date: 06/27/[address] Torres concerning this patient to see if he would reconsider taking the patient at [facility]. He states the patient's acuity is too high, and they typically don't take patient's of this nature. He says all other resources provided by [facility] crisis team should be exhausted. Also called Ms. Blanco of the crisis team to discuss recourses for this patient at [phone]. No answer. Left a message. Ms. Ward was also called at [phone]. No answer. Left a message as well with call back number.
--- NOTE | 2021-06-27 09:40 | Progress Note ---
Subjective - Reason for Consult Consult date: 06/27/21 Reason for consult: agitation - Chief Complaint Chief complaint: The patient was seen today. He is hitting his head with his hands. He is attempting to run out of the room. Consulted with Dr. Zafar about this patient. Would like to continue to treat and monitor the patient, but advised no inpatient recommendation. ROS Unable to assess MENTAL STATUS EXAMINATION Unable to assess Assessment and Plan (1) Acute Agitation (R45.1) Treatment Plan 1013 Continue case management consult Continue Klonopin 0.5mg po TID Continue Remeron 15mg po qhs Increased Depakote DR 500mg po BID Geodon 20mg IM q4h prn agitation Haldol 5mg po BID Agree with Versed Medical: Per primary Sitter: Defer to primary Disposition: Do not Recommend acute psychiatric inpatient treatment Will follow for med management. Thanks Case staffed with Dr. Zafar. The patient's progress and med management discussed with him. Dr. Zafar agrees with the above plan. Mental Status Exam - Vital signs Last Vital Signs Temp 98.7 F 06/27/21 07:45 Pulse 86 06/27/21 07:45 Resp 17 06/27/21 07:45 BP 131/99 06/27/21 07:45 Pulse Ox 99 06/27/21 07:45
[2021-06-27] MEDS: HALOPERIDOL 5 MG TAB PO SCH ×2 (12:05→23:32)
[2021-06-27] MEDS: diphenhydrAMINE 50 MG/ML VIAL IM PRN (12:35)
[2021-06-27] MEDS: ZIPRASIDONE MESYLATE 20 MG VIAL IM PRN (12:35)
--- NOTE | 2021-06-27 13:30 | Event Note ---
Date: 06/27/21 S: Patient continues to exhibit agitation requiring sedation O: Vital Signs - 8 hr 06/27/21 06/27/21 06:20 07:45 Temperature 98.7 F Pulse Rate 86 86 Respiratory 18 17 Rate Blood Pressure 103/55 131/99 [Right] O2 Sat by Pulse 96 99 Oximetry A: Acute agitation P: Psychiatry to continue to follow and manage but still does not recommend inpatient psych
[2021-06-27] MEDS: MIRTAZAPINE 15 MG TAB PO SCH (23:32)
[2021-06-27] MEDS: DIVALPROEX DR 500 MG TAB PO SCH (23:32)
[2021-06-28] MEDS ORDERED: LORazepam 2 MG/ML VIAL IM ONE (00:01)
[2021-06-28] MEDS ORDERED: LORazepam 2 MG/ML VIAL ONE (00:03)
[2021-06-28] MEDS ORDERED: KETAMINE 500 MG/5 ML VIAL MDV ONE (00:06)
--- NOTE | 2021-06-28 00:06 | Event Note ---
Date: 06/28/21 [id number] evaluation performed. Patient agitated, scratching, pulling at restraints, not responding to verbal de-escalation techniques or show of force. Patient is cognitively impaired, and does not exhibit decision-making capacity. He has required medication with ketamine in the past for safety. Other antipsychotics and sedatives have not been successful. I personally administered 300 mg of ketamine to the patient's left deltoid, after cleansing the left deltoid in typical aseptic fashion. The patient is placed on a potline monitor and pulse oximeter. Post administration of ketamine, he is breathing spontaneously, in no acute distress, vital signs unremarkable. 06/28/2021; 04: 0 3 AM Patient again agitated. Pulling and tugging. Has removed what of his restraints. Again does not have decision-making capacity. Medicated with ketamine. Resting comfortably. Order for potline monitor and pulse oximetry applied.
[2021-06-28] MEDS ORDERED: KETAMINE 500 MG/5 ML VIAL MDV IM STA ×2 (00:56→04:02)
[2021-06-28] MEDS: clonazePAM 0.5 MG TAB PO SCH (07:55)
[2021-06-28] MEDS: diphenhydrAMINE 50 MG/ML VIAL IM PRN ×3 (07:55→22:56)
[2021-06-28] MEDS: diazePAM 5 MG TAB PO SCH ×2 (10:23→23:06)
[2021-06-28] MEDS: DIVALPROEX DR 500 MG TAB PO SCH ×2 (10:23→23:05)
[2021-06-28] MEDS: HALOPERIDOL 5 MG TAB PO SCH ×2 (10:23→23:05)
[2021-06-28] MEDS: MIDAZOLAM 2 MG/2 ML INJ IM PRN ×3 (10:33→19:57)
--- NOTE | 2021-06-28 10:42 | Event Note ---
Date: 06/28/21 Dr. Zafar rounded on this patient this morning, and gave recommendations to me. He states the patient was calm at the time of his evaluation and is believed to be at his baseline. The patient should be provided with all necessary protective gear and discharge back to prior facility or place of dwelling. 1013 discontinued Klonopin discontinued Valium 10mg po BID to give longer coverage Depakote DR 500mg po BID Haldol 5mg po BID Remeron 15mg po qhs
--- NOTE | 2021-06-28 11:43 | Event Note ---
Date: 06/28/21 Spoke to Whitney David, the home provider at [phone]. She says she's unable to take the patient back due to his acuity. She says DD team says no one had reached out to them. Informed her that myself and the psych quality control assessor both reached out to the DD team and the supervisor coil springs, Mrs. Raymundo. Disposition as stands. This patient is clear from psych standpoint. He appears to be at his baseline. Case staffed with Dr. Zafar.
[2021-06-28] MEDS: MIRTAZAPINE 15 MG TAB PO SCH (23:05)
--- NOTE | 2021-06-29 00:19 | Event Note ---
I was asked by registered nurse to order soft wrist restraints. I evaluated patient. Two soft wrist restraints are in place. I did renew the restraint order. Patient is unable to cooperate due to autism. Chemical restraint has been not successful.
[2021-06-29] MEDS ORDERED: ZIPRASIDONE MESYLATE 20 MG VIAL IM STA ×2 (00:41→11:12)
[2021-06-29] MEDS ORDERED: LORazepam 2 MG/ML VIAL IM STA (03:19)
[2021-06-29] MEDS: diazePAM 5 MG TAB PO SCH ×2 (10:04→22:00)
[2021-06-29] MEDS: HALOPERIDOL 5 MG TAB PO SCH ×2 (10:04→22:00)
[2021-06-29] MEDS: DIVALPROEX DR 500 MG TAB PO SCH ×2 (10:04→22:00)
[2021-06-29] MEDS ORDERED: LORazepam 2 MG/ML VIAL IM ONE ×2 (10:12→16:30)
[2021-06-29] MEDS: diphenhydrAMINE 50 MG/ML VIAL IM PRN ×2 (10:19→17:20)
[2021-06-29] MEDS ORDERED: LOPERAMIDE 2 MG CAP PO ONE (13:51)
--- NOTE | 2021-06-29 13:53 | Emergency Department Report ---
Blank Doc - Documentation Documentation: 26-year-old male awaiting placement. Patient having diarrhea. Imodium ordered. Placement pending
[2021-06-29] MEDS: MIDAZOLAM 2 MG/2 ML INJ IM PRN (14:16)
[2021-06-29] MEDS ORDERED: ZIPRASIDONE MESYLATE 20 MG VIAL IM ONE ×2 (16:30→16:31)
[2021-06-29] MEDS: MIRTAZAPINE 15 MG TAB PO SCH (22:00)
[2021-06-30] MEDS: diphenhydrAMINE 50 MG/ML VIAL IM PRN (03:23)
[2021-06-30] MEDS: MIDAZOLAM 2 MG/2 ML INJ IM PRN (04:45)
--- NOTE | 2021-06-30 06:47 | Emergency Department Report ---
Blank Doc - Documentation Documentation: Patient was here for behavioral changes. He had been medically cleared. He had been cleared from psychiatric services. Ultimately, case management was involved and managed to have [place] [facility] [facility] willing to take him back. He was discharged. This was planned yesterday and completed today.
[2021-06-30 09:10] VITALS: BP 121/76
== END 2021-06-30 08:45 | disposition home or self-care (01) ==
LOC: ED 23:45
DX: R45.6 Violent behavior (principal); I10 Essential (primary) hypertension; Z20.822 Contact with and (suspected) exposure to COVID-19; E11.9 Type 2 diabetes mellitus without complications; F31.9 Bipolar disorder, unspecified; F20.9 Schizophrenia, unspecified; R51.9 Headache, unspecified; Z88.0 Allergy status to penicillin; Z91.013 Allergy to seafood; Z79.899 Other long term (current) drug therapy; X83.8XXA Intentional self-harm by other specified means, initial encounter; Y93.89 Activity, other specified; Y92.89 Other specified places as the place of occurrence of the external cause; Y99.8 Other external cause status
CPT/HCPCS: 36415; 70450; 80048; 80164; 80307; 81001; 84439; 84443; 85007; 85025; 90471; 90715; 96361; 96372; 96374; 96376; 99285; J1200; J1630; J2060; J2250; J3486; J3490; J7030; U0003; 80320; J2354; Q0162; G0480